=== PATIENT | female | born 1940 | race African-American/Black ===

== ENCOUNTER 2017-12-12 07:58 | Inpatient (IN) | payer MEDICARE, MEDICAID ==
[~2017-12-12] VITALS: Ht 167.6 cm; Wt 76.9 kg
[2017-12-12 08:38] LABS: BASOPHILS % 0.5 % (0.0-2.0); EOSINOPHILS % 1.4 % (0.0-5.0); HEMATOCRIT. 39.9 % (36.0-48.0); HEMOGLOBIN. 12.9 g/dL (12.0-16.0); LYMPHOCYTES % 30.5 % (20.0-50.0); MEAN CORPUSCULAR HEMOGLOBIN 29.2 pg (28.0-32.0); MEAN PLATELET VOLUME 8.1 fl (7.4-10.4); MONOCYTES % 8.2 % (2.0-8.0); NEUTROPHILS % 59.4 % (40.0-76.0); PLATELET 207 x1000/uL (130-400); RED BLOOD CELL COUNT 4.43 mill/uL (4.2-5.4); RED CELL DISTRIBUTION WIDTH 14.8 % (11.6-14.6)
[2017-12-12 08:44] LABS: CHLORIDE 108 mEq/L (98-107)
[2017-12-12 08:45] LABS: PROTHROMBIN TIME 9.6 sec (9.1-11.1)
[2017-12-12] MEDS ORDERED: ASPIRIN 325MG EC TABLET PO ONE (09:30)
[2017-12-12 10:47] LABS: CLARITY URINE CLEAR (CLEAR); COLOR URINE YELLOW (YELLOW); KETONES URINE NEGATIVE (NEGATIVE); LEUKOCYTE ESTERASE URINE TRACE (NEGATIVE); NITRITE URINE NEGATIVE (NEGATIVE); OCCULT BLOOD URINE NEGATIVE (NEGATIVE); PH URINE 7.5 (4.5-8.0); PROTEIN URINE NEGATIVE (NEGATIVE); SPECIFIC GRAVITY URINE 1.016 (1.005-1.030); UROBILINOGEN URINE 0.2 E.U./dL (0.2-1.0)
[2017-12-12] MEDS ORDERED: ACETAMINOPHEN 650MG SUPP PR PRN (12:30)
[2017-12-12] MEDS ORDERED: CLONIDINE 0.1MG TABLET PO PRN (12:30)
[2017-12-12] MEDS ORDERED: DIPHENHYDRAMINE 50MG/ML VIAL IV PRN (12:30)
[2017-12-12] MEDS ORDERED: ONDANSETRON HCL 4MG/2ML INJ IV PRN (12:30)
[2017-12-12] MEDS ORDERED: IPRATROPIUM/ALBUTEROL 0.5-3(2.5)MG/3ML NEB INH PRN (12:30)
[2017-12-12] MEDS ORDERED: MAGNESIUM/ALUMINUM HYDROXIDE/SIMETHICONE 30ML UDC PO PRN (12:30)
[2017-12-12] MEDS ORDERED: NA PHOS,M-B/NA PHOS,DI-BA ENEMA 118ML PR PRN (12:30)
[2017-12-12 16:50] VITALS: BP 145/101
[2017-12-12] MEDS ORDERED: GABA-531 PO (17:06)
[2017-12-12] MEDS ORDERED: HYDR12.529 PO (17:08)
[2017-12-12] MEDS ORDERED: TRAZ-212 MT (17:08)
[2017-12-12] MEDS ORDERED: AMLO5TAB88 PO (17:09)
[2017-12-12] MEDS ORDERED: BENA40TA9 MT (17:10)
[2017-12-12] MEDS ORDERED: DIAZ2TAB PO (17:11)
[2017-12-12] MEDS ORDERED: ASPI-1158 MT (17:13)
[2017-12-12] MEDS ORDERED: OLAN5TAB26 PO (17:17)
[2017-12-12 17:55] LABS: *AMPHETAMINES SCREEN URINE NEGATIVE (NEGATIVE); *BARBITURATES SCREEN URINE NEGATIVE (NEGATIVE); *COCAINE SCREEN URINE NEGATIVE (NEGATIVE)
[2017-12-12 17:56] LABS: *BENZODIAZEPINES SCREEN URINE PRESUMTIVE POSITIVE (NEGATIVE); CANNABINOID URINE SCREEN NEGATIVE (NEGATIVE); METHADONE URINE SCREEN NEGATIVE (NEGATIVE); OPIATES URINE SCREEN NEGATIVE (NEGATIVE); PHENCYCLIDINE URINE SCREEN NEGATIVE (NEGATIVE)
[2017-12-12] MEDS: ENOXAPARIN 40MG/0.4ML SYR SUBCUT SCH (18:00)
[2017-12-12] MEDS ORDERED: ALPRAZOLAM 0.25 MG TABLET PO PRN (19:45)
[2017-12-12 20:00] VITALS: BP 160/90
[2017-12-12] MEDS: TRAZODONE HCL 50MG TABLET PO SCH (20:10)
[2017-12-12] MEDS: GABAPENTIN 300MG CAPSULE PO SCH (21:07)
[2017-12-13] VITALS: BP 138/80
[2017-12-13 04:00] VITALS: BP 115/69
[2017-12-13 07:30] VITALS: BP 146/76
[2017-12-13 07:56] LABS: BASOPHILS % 0.6 % (0.0-2.0); EOSINOPHILS % 0.3 % (0.0-5.0); HEMATOCRIT. 37.8 % (36.0-48.0); HEMOGLOBIN. 12.6 g/dL (12.0-16.0); LYMPHOCYTES % 17.6 % (20.0-50.0); MEAN CORPUSCULAR HEMOGLOBIN 29.6 pg (28.0-32.0); MEAN CORPUSCULAR VOLUME 88.8 fL (81.0-99.0); MEAN PLATELET VOLUME 8.6 fl (7.4-10.4); MONOCYTES % 7.8 % (2.0-8.0); NEUTROPHILS % 73.7 % (40.0-76.0); PLATELET 205 x1000/uL (130-400); RED BLOOD CELL COUNT 4.26 mill/uL (4.2-5.4); RED CELL DISTRIBUTION WIDTH 14.8 % (11.6-14.6)
[2017-12-13 08:13] LABS: CHLORIDE 109 mEq/L (98-107)
[2017-12-13 08:27] LABS: HDL CHOLESTEROL 77 mg/dL (40-59); LDL CHOLESTEROL 83 mg/dL (5-100)
[2017-12-13] MEDS: GABAPENTIN 300MG CAPSULE PO SCH ×2 (08:48→17:33)
[2017-12-13] MEDS: ACETAMINOPHEN 650MG/20.3ML UDC GT PRN ×2 (08:48→21:25)
[2017-12-13] MEDS: ASPIRIN 81MG EC TABLET PO SCH (08:48)
[2017-12-13] MEDS: FLUTICASONE PROPIONATE 50MCG/SPRAY BOTTLE BOTHNSTRLS SCH ×2 (08:48→21:25)
[2017-12-13] MEDS ORDERED: GABAPENTIN 300MG CAPSULE PO SCH (09:00)
[2017-12-13 12:00] VITALS: BP 137/82
[2017-12-13] MEDS ORDERED: OLANZAPINE 5 MG PO SCH (12:15)
[2017-12-13] MEDS ORDERED: MEDICATION NOT ON FORMULARY EA (Hydrochlorothiazide 12.5 MG) PO SCH (12:15)
[2017-12-13] MEDS: AMLODIPINE 5MG TABLET PO SCH (12:15)
[2017-12-13] MEDS: HYDROCHLOROTHIAZIDE 12.5MG CAPSULE PO SCH (12:30)
[2017-12-13] MEDS: OLANZAPINE 5MG TABLET PO SCH (13:07)
[2017-12-13] MEDS ORDERED: LIDOCAINE HCL 1% 20ML VIAL (Pyxis) INJ ONE (15:11)
[2017-12-13] MEDS ORDERED: SODIUM BICARBONATE 4% (2.4MEQ) 5ML VIAL IV ONE (15:12)
[2017-12-13] MEDS ORDERED: PIPERACILLIN/TAZ 3.375G PREMIX 50 ML IV SCH (16:00)
[2017-12-13 17:00] VITALS: BP 116/87
[2017-12-13] MEDS ORDERED: VANCOMYCIN 1250MG in DEXTROSE 5% WATER 250ML IV SCH (17:00)
[2017-12-13] MEDS ORDERED: IOHEXOL-350 100 ML BOTTLE ONE (17:25)
[2017-12-13] MEDS: ENOXAPARIN 40MG/0.4ML SYR SUBCUT SCH (17:32)
[2017-12-13] MEDS: LORAZEPAM 0.5MG TABLET PO PRN (17:33)
[2017-12-13] MEDS ORDERED: NITROGLYCERIN 0.4MG TABLET SL SL PRN (17:45)
[2017-12-13] MEDS ORDERED: MORPHINE SULFATE 4 MG/ML CPJ (NOT FOR IM USE) IV PRN (17:45)
[2017-12-13] MEDS ORDERED: MECLIZINE 25MG TABLET PO PRN (18:30)
[2017-12-13 20:00] VITALS: BP 148/87
[2017-12-13] MEDS ORDERED: LEVOFLOXACIN 500MG PREMIX 100 ML IV SCH (20:00)
[2017-12-13] MEDS: TRAZODONE HCL 50MG TABLET PO SCH (21:24)
[2017-12-13] MEDS: METRONIDAZOLE 500 MG PREMIX 100 ML IV SCH (23:42)
[2017-12-14] VITALS: BP 100/54
[2017-12-14 04:00] VITALS: BP 149/61
[2017-12-14] MEDS: METRONIDAZOLE 500 MG PREMIX 100 ML IV SCH ×3 (05:52→21:54)
[2017-12-14 08:00] VITALS: BP 109/60
[2017-12-14] MEDS: AMLODIPINE 5MG TABLET PO SCH (08:42)
[2017-12-14] MEDS: HYDROCHLOROTHIAZIDE 12.5MG CAPSULE PO SCH (08:42)
[2017-12-14] MEDS: OLANZAPINE 5MG TABLET PO SCH (08:42)
[2017-12-14] MEDS: BENAZEPRIL 10MG TABLET PO SCH (08:42)
[2017-12-14] MEDS: ACETAMINOPHEN 650MG/20.3ML UDC GT PRN (08:53)
[2017-12-14] MEDS: ASPIRIN 81MG EC TABLET PO SCH (08:53)
[2017-12-14] MEDS: FLUTICASONE PROPIONATE 50MCG/SPRAY BOTTLE BOTHNSTRLS SCH ×2 (08:53→21:55)
[2017-12-14] MEDS: LORAZEPAM 0.5MG TABLET PO PRN ×2 (08:53→18:03)
[2017-12-14] MEDS: GABAPENTIN 300MG CAPSULE PO SCH ×2 (08:53→18:02)
[2017-12-14] MEDS ORDERED: VANCOMYCIN 1 G PREMIX 200 ML IV SCH (11:00)
[2017-12-14 11:30] LABS: HEMATOCRIT 36.4 % (36.0-48.0); HEMOGLOBIN 12.1 g/dL (12.0-16.0); MEAN CORPUSCULAR HEMOGLOBIN 29.3 pg (28.0-32.0); MEAN CORPUSCULAR VOLUME 88.3 fL (81.0-99.0); PLATELET 174 x1000/uL (130-400); RED BLOOD CELL COUNT 4.12 mill/uL (4.2-5.4); RED CELL DISTRIBUTION WIDTH 15.1 % (11.6-14.6)
[2017-12-14 12:00] VITALS: BP 100/61
[2017-12-14] MEDS ORDERED: POTASSIUM CHLORIDE 20MEQ TABLET SR PO NR (12:15)
[2017-12-14 16:00] VITALS: BP 123/81
[2017-12-14] MEDS: ENOXAPARIN 40MG/0.4ML SYR SUBCUT SCH (18:03)
[2017-12-14 20:00] VITALS: BP 126/86
[2017-12-14] MEDS ORDERED: LEVOFLOXACIN 250MG PREMIX 50 ML IV SCH (21:00)
[2017-12-14] MEDS: TRAZODONE HCL 50MG TABLET PO SCH (21:54)
[2017-12-15 04:00] VITALS: BP 137/83
[2017-12-15] MEDS: METRONIDAZOLE 500 MG PREMIX 100 ML IV SCH ×3 (06:00→15:24)
[2017-12-15 08:21] VITALS: BP 136/88
[2017-12-15] MEDS: FLUTICASONE PROPIONATE 50MCG/SPRAY BOTTLE BOTHNSTRLS SCH (08:53)
[2017-12-15] MEDS: ASPIRIN 81MG EC TABLET PO SCH (08:53)
[2017-12-15] MEDS: AMLODIPINE 5MG TABLET PO SCH (08:54)
[2017-12-15] MEDS: GABAPENTIN 300MG CAPSULE PO SCH (08:54)
[2017-12-15] MEDS: HYDROCHLOROTHIAZIDE 12.5MG CAPSULE PO SCH (08:54)
[2017-12-15] MEDS: BENAZEPRIL 10MG TABLET PO SCH (08:54)
[2017-12-15] MEDS: OLANZAPINE 5MG TABLET PO SCH (09:09)
[2017-12-15 10:17] LABS: HEMATOCRIT. 36.6 % (36.0-48.0); HEMOGLOBIN. 12.3 g/dL (12.0-16.0); MEAN CORPUSCULAR HEMOGLOBIN 29.8 pg (28.0-32.0); MEAN CORPUSCULAR VOLUME 88.4 fL (81.0-99.0); PLATELET 183 x1000/uL (130-400); RED BLOOD CELL COUNT 4.14 mill/uL (4.2-5.4)
[2017-12-15 11:16] LABS: CHLORIDE 113 mEq/L (98-107)
[2017-12-15 12:00] VITALS: BP 138/87
[2017-12-15 15:20] VITALS: BP 138/87
[2017-12-15 16:25] LABS: PLATELET ESTIMATE NORMAL
== END 2017-12-15 16:30 | disposition home health service (06) | DRG 73 ==
LOC: ER 07:58 → 8WST 10:21 → ENRESERV 14:52 → CANBEDREQ 16:39
PROVIDERS: ADMIT Internal Medicine; ATTEND Internal Medicine
PROC: 02HV33Z Insertion of Infusion Device into Superior Vena Cava, Percutaneous Approach (ICD-10-PCS; principal; 2017-12-13)
PROC: B5181ZA Fluoroscopy of Superior Vena Cava using Low Osmolar Contrast, Guidance (ICD-10-PCS; 2017-12-13)
PROC: B548ZZA Ultrasonography of Superior Vena Cava, Guidance (ICD-10-PCS; 2017-12-13)
DX: G62.9 Polyneuropathy, unspecified (principal); I50.33 Acute on chronic diastolic (congestive) heart failure; G45.9 Transient cerebral ischemic attack, unspecified; E86.0 Dehydration; E87.6 Hypokalemia; F41.9 Anxiety disorder, unspecified; I11.0 Hypertensive heart disease with heart failure; R79.1 Abnormal coagulation profile; R50.9 Fever, unspecified; B96.89 Other specified bacterial agents as the cause of diseases classified elsewhere; Z90.710 Acquired absence of both cervix and uterus; Z91.19 Patient's noncompliance with other medical treatment and regimen; Z98.82 Breast implant status; Z88.8 Allergy status to other drugs, medicaments and biological substances; Z79.899 Other long term (current) drug therapy; Z79.82 Long term (current) use of aspirin
CPT/HCPCS: 36415; 36569; 70551; 71045; 71275; 74176; 76937; 77001; 80048; 80061; 80305; 83036; 83880; 84145; 84439; 84443; 84484; 85007; 85027; 85379; 87015; 87045; 87077; 87186; 87427; 87449; 87493; 92610; 93005; 93306; 93880; 93970; 97162; 99285; C1725; J1650; J1956; J2543; J3370; J3490; J7060; Q9967